=== PATIENT | male | born 1960 | race Caucasian/White ===

== ENCOUNTER 2023-10-02 12:28 | Outpatient (AMB) | payer OTHER, SELFPAY ==
[2023-10-02 12:32] VITALS: BP 126/70; PULSE 67; RESP 15; TEMP 36.6; O2SAT 96; BMI 36.7
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
== END 2023-10-02 13:45 | disposition home or self-care (01) ==
PROVIDERS: PCP Nurse Practitioner Family; Visit Provider Nurse Practitioner Family
DX: E11.8 Type 2 diabetes mellitus with unspecified complications (principal); Z23 Encounter for immunization
CPT/HCPCS: 83036; 90471; 90715; 99205; G9226

== ENCOUNTER 2023-10-02 13:34 | Outpatient (REF) | payer OTHER, SELFPAY ==
[2023-10-02 15:36] LABS: Alanine Aminotransferase 16 U/L (0-40); Albumin Level 3.9 g/dL (3.5-5.0); Alkaline Phosphatase 71 U/L (39-117); Anion Gap 11 (12-20); Aspartate Amino Transferase 22 U/L (5-37); Bilirubin Total 0.6 mg/dL (0.0-1.0); Blood Urea Nitrogen 17 mg/dL (9-16); Calcium 9.3 mg/dL (8.4-10.2); Carbon Dioxide 24 mmol/L (22-29); Chloride 106 mmol/L (96-108); Estimated Glomerular Filt Rate > 60; Glucose Random 101 mg/dL (60-115); Potassium 4.1 mmol/L (3.3-5.1); Sodium 137 mmol/L (135-145); Total Protein 7.2 g/dL (6.5-8.0)
[2023-10-02 15:41] LABS: Creatinine Urine 177.22 mg/dL
[2023-10-02 15:54] LABS: TSH reflex Free T4 2.81 uIU/mL (0.32-4.0)
[2023-10-02 16:02] LABS: Vitamin B12 191 pg/mL (200-900)
[2023-10-04 11:48] LABS: LDL Cholesterol Direct 104 mg/dL (<100)
[2023-10-07 20:38] LABS: VITAMIN D (1,25 OH) D3 47 pg/mL; Vit D (1,25-Dihydroxy) Total 47 pg/mL (18-72); Vitamin D (1,25 OH) D2 <8 pg/mL
[2023-10-08 21:33] LABS: PSA, Ultra Sensitive 0.32 ng/mL
== END 2023-10-02 13:35 | disposition home or self-care (01) ==
LOC: HO.WFDLDS 13:34
PROVIDERS: Visit Provider Nurse Practitioner Family
DX: E11.59 Type 2 diabetes mellitus with other circulatory complications (principal); I15.2 Hypertension secondary to endocrine disorders; E11.21 Type 2 diabetes mellitus with diabetic nephropathy; K74.60 Unspecified cirrhosis of liver; E11.8 Type 2 diabetes mellitus with unspecified complications; Z12.5 Encounter for screening for malignant neoplasm of prostate
CPT/HCPCS: 36415; 80053; 82043; 82570; 82607; 82652; 82746; 83721; 84153; 84443

== ENCOUNTER 2023-10-14 14:08 | Outpatient (AMB) | payer OTHER, SELFPAY ==
[2023-10-14 14:13] VITALS: BP 120/62; PULSE 71; O2SAT 96; BMI 36.5
--- NOTE | 2023-10-14 14:13 | HO.NEPHOV_ITS ---
Vital Signs 10/14/23 14:13 Height 5 ft 11 in Weight 262 lb BMI 36.5 BP 120/62 Blood Pressure Location Lt brachial Position Sitting Pulse 71 Pulse Source Pulse Oximeter Pulse Oximetry (%) 96 Oxygen Delivery Method Room Air Intake Visit Reasons: Cyst of kidney/ Conf Head Screen Worker Required: No Accompanied by: Self / Same As Patient Allergies No Known Allergies Allergy (Verified 10/14/23 14:14) Medication List - Last Reconciled 10/14/23 by Azael Shah MD aspirin 81 mg PO QAM docusate sodium 100 mg PO BID fluoxetine 40 mg PO QAM lamotrigine ER 300 mg PO DAILY lisinopril 40 mg PO DAILY lorazepam (Ativan) 0.5 mg PO BEDTIME PRN mecobalamin (vitamin B12) (B12 Active) 1,000 mcg PO DAILY metformin ER 1,500 mg PO DAILY simvastatin 40 mg PO BEDTIME HPI Comments Details: . 63-year-old man with a history of diabetes mellitus for more than 15 years along with hypertension obesity was found to have simple renal cyst. He has been referred for evaluation of renal cyst. In 2021 he underwent repair of umbilical hernia which was incarcerated. During evaluation he was found to have bilateral simple cyst. He used to see Dr. Kenna Mcconnell send up until 2022. After his prison he has switched providers and currently being seen at by the [facility]. He also has microalbuminuria. Recent urine microalbumin creatinine ratio was 31. He is on lisinopril 40 mg. 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 Cognitive needs: No Hearing needs: No Vision needs: No Review of Systems Const Denies fever(s) and Denies weight loss Card Denies chest pain Resp Denies cough and Denies hemoptysis GI Denies abdominal pain, Denies diarrhea and Denies nausea Musc Denies back pain Neuro Denies focal weakness Physical Exam Vital Signs: Last Vital Signs Pulse 71 10/14/23 14:13 BP 120/62 10/14/23 14:13 Pulse Ox 96 10/14/23 14:13 Oxygen Delivery Method Room Air 10/14/23 14:13 BMI result Body Mass Index 36.5 Const General: comfortable; No acute distress Orientation/consciousness: patient oriented x3 Eyes General: appearance normal, both eyes and all related structures Visual Jay: normal visual jay by confrontation Neck Neck: Yes supple and Yes no JVD Resp Effort & Inspection: normal respiratory effort and respiratory effort not decreased Auscultation: rhonchi Cardio Palpation: no palpable S3 and no palpable S4 Heart sounds: no rubs GI Inspection: Yes normal to inspection Palpation (GI): Soft to palpation Percussion: Yes normal to percussion Auscultation: normal bowel sounds General: Yes no CVA tenderness Back/Spine/Pelvis Back: no CVA tenderness Skin General skin exam: no petechiae and no purpura Neuro General: patient oriented x3 and no focal motor deficits Extrem General: No clubbing and No edema Results Reviewed Nephrology Results: Sodium 137 mmol/L (135-145) 10/02/23 Potassium 4.1 mmol/L (3.3-5.1) 10/02/23 Chloride 106 mmol/L (96-108) 10/02/23 Carbon Dioxide 24 mmol/L (22-29) 10/02/23 BUN 17 mg/dL (9-16) H 10/02/23 Creatinine 0.79 mg/dL (0.5-1.4) 10/02/23 Calcium 9.3 mg/dL (8.4-10.2) 10/02/23 Urine Creatinine 177.22 mg/dL 10/02/23 Assessment & Plan Assessment & Plan (1) Renal cyst: Code(s): N28.1 - Cyst of kidney, acquired Category: Medical (2) CKD (chronic kidney disease) stage 1, GFR 90 ml/min or greater: Code(s): N18.1 - Chronic kidney disease, stage 1 Category: Medical Plan ; 63-year-old man with hypertension diabetes medicine obesity with microalbuminuria and simple renal cyst. He has stage I CKD based on the renal cyst and microalbuminuria. Renal function is stable. Renal cyst. Based on the CT scan the appears a simple cyst. He has a follow-up ultrasound scheduled in the next 2 weeks. For completion I will obtain urine cytology and urinalysis. At present blood pressure is well controlled. Continue with ADILSON inhibitor for both control blood pressure and to control microalbuminuria. He should stay on low-sodium diet and he will benefit from weight loss. We will also benefit from SGLT2 inhibitors. Today are not made any changes in medications I will be happy to follow along with the team. Thank you Orders: Orders Urine Cytology Today N28.1 - Cyst of kidney, acquired, R31.9 - Hematuria, unspecified UA and rflx microscopic Today N28.1 - Cyst of kidney, acquired Medications: Discontinued simvastatin Discontinued Reason: Doctor's Order 20 mg PO DAILY 90 tabs 0RF Coding Level of Care Code New Pt Level 4 (74509) Diagnoses Renal cyst N28.1 CKD (chronic kidney disease) stage 1, GFR 90 ml/min or greater N18.1
== END 2023-10-14 14:39 | disposition home or self-care (01) ==
PROVIDERS: PCP Nurse Practitioner Family; Visit Provider Internal Medicine Hypertension Specialist
DX: N28.1 Cyst of kidney, acquired (principal); N18.1 Chronic kidney disease, stage 1
CPT/HCPCS: 99204

== ENCOUNTER 2023-10-14 14:08 | Outpatient (REF) | payer OTHER, SELFPAY ==
[2023-10-14 15:40] LABS: Urine Cytology See Pathology rpt
[2023-10-14 15:44] LABS: Estimated Average Glucose 117 mg/dL; Hemoglobin A1c % 5.7 % (<6.0)
[2023-10-14 15:49] LABS: Appearance Urine Clear; Color Urine Yellow; Glucose Urine UA Negative (Negative); Leukocyte Esterase Urine Negative (Negative); Nitrite Urine Negative (Negative); PH 5.5 (5.0-9.0); Urine Blood Negative (Negative); Urine Ketones Negative (Negative); Urine Protein Negative (Neg-Trace)
[2023-10-14 16:14] LABS: Alanine Aminotransferase 16 U/L (0-40); Albumin Level 3.9 g/dL (3.5-5.0); Alkaline Phosphatase 70 U/L (39-117); Anion Gap 11 (12-20); Aspartate Amino Transferase 34 U/L (5-37); Bilirubin Total 0.8 mg/dL (0.0-1.0); Blood Urea Nitrogen 16 mg/dL (9-16); Calcium 9.6 mg/dL (8.4-10.2); Carbon Dioxide 25 mmol/L (22-29); Chloride 108 mmol/L (96-108); Cholesterol 129 mg/dL (<200); Estimated Glomerular Filt Rate > 60; Glucose Fasting 114 mg/dL (60-99); HDL Cholesterol 36 mg/dL (>40); LDL Cholesterol Calculated 23 mg/dL (<100); Potassium 4.2 mmol/L (3.3-5.1); Sodium 140 mmol/L (135-145); Total Protein 7.2 g/dL (6.5-8.0); Triglycerides 354 mg/dL (<150)
[2023-10-14 16:49] LABS: Folate 8.4 ng/mL (> or = 4.0); Vitamin B12 162 pg/mL (200-900)
== END 2023-10-14 14:09 | disposition home or self-care (01) ==
LOC: HO.LAB 14:08
PROVIDERS: PCP Nurse Practitioner Family; Visit Provider Internal Medicine Hypertension Specialist
DX: N28.1 Cyst of kidney, acquired (principal); E53.8 Deficiency of other specified B group vitamins; E11.59 Type 2 diabetes mellitus with other circulatory complications; I15.2 Hypertension secondary to endocrine disorders; E11.8 Type 2 diabetes mellitus with unspecified complications; R31.9 Hematuria, unspecified
CPT/HCPCS: 36415; 80053; 80061; 81003; 82607; 82746; 83036; 88112

== ENCOUNTER 2023-10-29 09:29 | Outpatient (REF) | payer OTHER, SELFPAY ==
--- NOTE | ~2023-10-29 | US_ITS ---
EXAMINATION: NONINVASIVE ANKLE BRACHIAL INDICES OF BOTH LOWER EXTREMITIES CLINICAL INFORMATION: Diabetes, hyperlipidemia, hypertension. COMPARISON: None. TECHNIQUE: Ankle-brachial indices were calculated bilaterally and PVR tracings were performed at the level of the ankles. This study was performed at rest only. FINDINGS: a) AT REST: 1. The ankle-brachial indices are: Right 1.25 and left 1.18. >0.97-1.25 = normal - no significant arterial disease. 0.75-0.96 = mild peripheral arterial disease. 0.5-0.74 = moderate peripheral arterial disease. <0.50 = severe peripheral arterial disease. 2. PVR waveforms at ankle: Normal. US/US CHETAN complete IMPRESSION: No evidence of hemodynamically significant lower extremity peripheral arterial disease at rest.
--- NOTE | 2023-10-29 14:59 | CA_ITS ---
Transthoracic Echocardiogram Patient (Last, First, Middle): Guevara Banuelos, Gender: Male Date of : 1960 Age: 63 Procedure Date: 10/29/2023 Procedure Type: Transthoracic Echocardiogram Location: OP Height: 180.34 cm Weight: 117.94 kg BSA: 2.36 m2 Heart Rate: 58 bpm BP: 122 / 64 mmHg Embedded Systems Software Engineer: SB Referring MD: Mandy Dale [facility] Symptoms: R60.0 - Localized edema Study Quality: Adequate ECG Rhythm: Bradycardia Conclusions: - The left ventricular systolic function is normal. The calculated ejection fraction is 66% by biplane method. - No obvious valvular pathology seen on this study. Findings Left Ventricle Normal left ventricular cavity size. There is normal left ventricular wall thickness. The left ventricular systolic function is normal. The calculated ejection fraction is 66% by biplane method. There is no evidence of regional wall motion abnormalities. Diastolic function is normal for age. Right Ventricle Normal right ventricular cavity size and systolic function. Atria Both atria are normal in size. Aortic Valve There is a normal trileaflet aortic valve. There is no aortic valve stenosis. There is no aortic valve regurgitation. Mitral Valve The mitral valve appears normal. There is no mitral valve regurgitation. There is no mitral valve stenosis. Pulmonic Valve The pulmonic valve is likely normal. Tricuspid Valve There is trace tricuspid valve regurgitation. There is no evidence of pulmonary hypertension. Great Vessels The asc aorta is normal in size. Venous The inferior vena cava is normal in size and collapses greater than 50% with inspiration. Pericardium/Pleural There is no evidence of pericardial effusion. Prior Study Comparison No prior study available for comparison. Recommendations, Care & Conclusions No obvious valvular pathology seen on this study. Measurements 2D Linear Measurements IVSd: 0.85 0.6-0.9/0.6-1.0 cm LVIDd: 6.41 3.9-5.3/4.2-5.9 cm LVIDd Index: 2.72 2.4-3.2/2.2-3.1 cm/m2 LVIDs: 4.57 2.0-3.6 cm LVPWd: 0.74 0.7-1.1 cm LA Diam: 4.20 2.7-3.8/3.0-4.0 cm LAIDs Index: 1.78 1.5-2.3 cm/m2 LV Mass: 258.57 67-162/88-224 g LV Mass Index: 109.56 43-95/49-115 g/m2 LVOT Diam: 2.30 3.0+(-)1.3 cm 2D Systolic Function EF 4C: 58.90 >55% EF 2C: 70.00 >55% EF BiP: 65.50 >55% Mitral Valve MV Pk E: 0.86 MV PK A: 0.64 MV Decel Time: 173.00 E/A: 1.30 E'Lateral: 10.40 E'Medial: 9.46 E/E' Med: 9.10 E/E' Lat: 8.20 PHT: 51.00 MVA PHT: 4.31 Decel Floyd: 4.94 Aortic Valve AoV Pk Jesus: 1.30 AoV Pk Grad: 7.00 ROSEMARY: 3.67 LVOT LVOT Pk Jesus: 1.09 LVOT Mn Jesus: 0.81 LVOT VTI: 0.27 LVOT Pk Grad: 5.00 LVOT Mn Grad: 3.00 LVOT Diam: 2.30 LVOT Area: 4.15 Diastolic Function MV Pk E: 0.86 MV Pk A: 0.64 E/A: 1.30 E'Medial: 9.46 E/E' Med: 9.10 E' Laterial: 10.40 E/E' Lat: 8.20 Right Ventricle TAPSE (mm): 25.90 TVS' Jesus: 16.50 Tricuspid Valve TR Pk Jesus: 2.39 TR Pk Grad: 23.00 RA Press: 3.00 RVSP: 26.00 Great Vessels Aorta Sinus of Valsalva: 3.40 2.0-3.5 cm Ao Asc: 3.30 2.1-3.4 cm Pulmonary Valve PV Pk Jesus: 1.19 Peak PV Grad: 6.00 Updated in Other Vendor System with Status of Final Mac Stovall MD electronically signed on 10/31/2023 11:09:23 AM with status of Final
== END 2023-10-29 09:30 | disposition home or self-care (01) ==
LOC: HO.US 09:29
PROVIDERS: PCP Nurse Practitioner Family; Visit Provider Nurse Practitioner Family
DX: R60.0 Localized edema (principal); I73.9 Peripheral vascular disease, unspecified
CPT/HCPCS: 93306; 93923

== ENCOUNTER → 2023-10-29 14:59 | Outpatient (BNV) | payer OTHER, SELFPAY | PROVIDERS: PCP Nurse Practitioner Family; Visit Provider Internal Medicine | DX: R60.0 Localized edema (principal) | CPT/HCPCS: 93306 ==

== ENCOUNTER 2023-11-01 09:52 | Outpatient (REF) | payer OTHER, SELFPAY ==
--- NOTE | ~2023-11-01 | US_ITS ---
EXAMINATION: US COMPLETE ABDOMEN WITH LIVER ELASTOGRAPHY CLINICAL INFORMATION: Cirrhotic liver. COMPARISON: None available. TECHNIQUE: Real-time imaging of the abdominal viscera. Noninvasive ultrasound liver fibrosis assessment is performed using Giselle ElastPQ point quantification shear wave elastography (2D-SWE) with a C5-2 MHz transducer. Multiple elastography samples are obtained. FINDINGS: PANCREAS: The visualized pancreatic head and body are normal in appearance. The remainder of the pancreas is obscured from visualization by the overlying bowel gas. ABDOMINAL AORTA: The proximal, middle, and distal aortic segments are normal in caliber. INFERIOR VENA CAVA: Visualized portions are normal. LIVER: The liver is enlarged with increased echogenicity and a lobular contour consistent with hepatic steatosis/cirrhosis. No focal lesion or intrahepatic biliary duct dilatation. The right lobe measures 20.0 cm in length. The left lobe measures 11.8 cm in length. Portal flow is towards the liver (hepatopetal). Shear wave liver elastography median stiffness is 1.29 m/s (reference: normal median stiffness is 1.3 m/s or less). IQR/median stiffness to assess sampling precision is 0.09 (reference: good quality data set is IQR/median stiffness of 0.15 or less). GALLBLADDER: The gallbladder is physiologically distended without evidence of stones, sludge, polyps, wall thickening or pericholecystic fluid. COMMON BILE DUCT: Normal in caliber measuring 0.6 cm in diameter. RIGHT KIDNEY: No hydronephrosis. No renal calculi. A benign 1.6 cm septated Bosniak class II renal cyst is noted which requires no additional imaging or follow up. No solid renal masses are seen. The kidney measures 12.3 cm in maximum dimension. LEFT KIDNEY: No hydronephrosis. No renal calculi. A benign 1.5 cm Bosniak class I renal cyst is noted which requires no additional imaging or follow up. No solid renal masses are seen. The kidney measures 12.1 cm in maximum dimension. SPLEEN: Normal. The spleen is enlarged measuring 15 cm in maximum dimension. FREE FLUID: None. US/US abdomen comp w elastography IMPRESSION: 1. Enlarged echogenic liver with a nodular border consistent with cirrhosis/fatty infiltration. 2. Liver elastography: Measurements are consistent with a high probability of normal liver stiffness. REFERENCE: Society of Radiologists in Ultrasound Liver Stiffness Thresholds (2020): LIVER STIFFNESS THRESHOLDS: *Liver Stiffness equal or less than 1.3 m/s: High probability of being normal. *Liver Stiffness less than 1.7 m/s: In the absence of other known clinical signs, rules out compensated advanced chronic liver disease. *Liver Stiffness 1.7-2.1 m/s: Suggestive of compensated advanced chronic liver disease but need further test for confirmation. *Liver Stiffness over 2.1 m/s: Rules in compensated advanced chronic liver disease. *Liver Stiffness over 2.4 m/s: Suggestive of clinically significant portal hypertension. QUALITY OF DATA SET: *IQR/Median value equal or less than 0.15 implies a quality data set. *IQR/Median value over 0.15 implies a poor quality data set. SIGNIFICANT CHANGE FROM PRIOR EXAM: Significant change if liver stiffness measurement is 10% or greater from prior exam. OTHER CONSIDERATIONS: The stage of liver fibrosis may be overestimated in the setting of acute hepatitis, liver inflammation, elevated liver function tests, hepatic vascular congestion, obstructive cholestasis, non-fasting state, and infiltrative diseases such as amyloidosis and lymphoma. In some patients with NAFLD, the liver stiffness thresholds for compensated advanced chronic liver disease may be lower. In causes other than viral hepatitis and NAFLD, liver stiffness thresholds are not well established.
== END 2023-11-01 09:53 | disposition home or self-care (01) ==
LOC: HO.US 09:52
PROVIDERS: PCP Nurse Practitioner Family; Visit Provider Nurse Practitioner Family
DX: K74.60 Unspecified cirrhosis of liver (principal); N28.1 Cyst of kidney, acquired
CPT/HCPCS: 76700; 76981

== ENCOUNTER 2023-11-25 10:25 | Outpatient (AMB) | payer OTHER, SELFPAY ==
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
[2023-11-25 10:34] VITALS: BP 108/60; PULSE 57; RESP 16; O2SAT 95; BMI 36.7
== END 2023-11-25 11:11 | disposition home or self-care (01) ==
PROVIDERS: PCP Nurse Practitioner Family; Visit Provider Nurse Practitioner Family
DX: E11.8 Type 2 diabetes mellitus with unspecified complications (principal); E53.8 Deficiency of other specified B group vitamins; E11.69 Type 2 diabetes mellitus with other specified complication; E78.5 Hyperlipidemia, unspecified; N18.1 Chronic kidney disease, stage 1; R60.0 Localized edema; M54.9 Dorsalgia, unspecified; G89.29 Other chronic pain
CPT/HCPCS: 99215

== ENCOUNTER 2023-12-23 11:13 | Outpatient (AMB) | payer OTHER, SELFPAY ==
[2023-12-23 11:17] VITALS: BP 124/60; PULSE 68; O2SAT 95; BMI 37.0
--- NOTE | 2023-12-23 11:17 | HO.NEPHOV_ITS ---
Vital Signs 12/23/23 11:17 Height 5 ft 11 in Weight 265 lb BMI 37.0 BP 124/60 Blood Pressure Location Lt brachial Position Sitting Pulse 68 Pulse Source Pulse Oximeter Pulse Oximetry (%) 95 Oxygen Delivery Method Room Air Intake Visit Reasons: Cyst of kidney/ Per pt request/ Conf Publishing Specialist Required: No Accompanied by: Self / Same As Patient Allergies No Known Allergies Allergy (Verified 12/23/23 11:19) Medication List - Last Reconciled 12/23/23 by Azael Shah MD carisoprodol (Soma) 350 mg PO BEDTIME PRN docusate sodium 100 mg PO BID PRN fluoxetine 40 mg PO QAM lamotrigine ER 300 mg PO DAILY lisinopril 40 mg PO DAILY lorazepam 1 mg PO DAILY PRN mecobalamin (vitamin B12) (B12 Active) 1,000 mcg PO DAILY metformin ER 1,500 mg PO DAILY simvastatin 40 mg PO BEDTIME HPI Comments Details: . 63-year-old man with a history of diabetes mellitus for more than 15 years along with hypertension obesity was found to have simple renal cyst. He has been referred for evaluation of renal cyst. In 2021 he underwent repair of umbilical hernia which was incarcerated. During evaluation he was found to have bilateral simple cyst. He used to see Dr. Kenna Mcconnell send up until 2022. After his assisted he has switched providers and currently being seen at by the [place] lead dental assistant. He also has microalbuminuria. Recent urine microalbumin creatinine ratio was 31. He is on lisinopril 40 mg. 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 Cognitive needs: No Hearing needs: No Vision needs: No Physical Exam Vital Signs: Last Vital Signs Pulse 68 12/23/23 11:17 BP 124/60 12/23/23 11:17 Pulse Ox 95 12/23/23 11:17 Oxygen Delivery Method Room Air 12/23/23 11:17 BMI result Body Mass Index 37.0 Const General: comfortable; No acute distress Orientation/consciousness: patient oriented x3 Eyes General: appearance normal, both eyes and all related structures Visual Jay: normal visual jay by confrontation Neck Neck: Yes supple and Yes no JVD Resp Effort & Inspection: normal respiratory effort and respiratory effort not decreased Auscultation: rhonchi Cardio Palpation: no palpable S3 and no palpable S4 Heart sounds: no rubs GI Inspection: Yes normal to inspection Palpation (GI): Soft to palpation Percussion: Yes normal to percussion Auscultation: normal bowel sounds General: Yes no CVA tenderness Back/Spine/Pelvis Back: no CVA tenderness Skin General skin exam: no petechiae and no purpura Neuro General: patient oriented x3 and no focal motor deficits Extrem General: No clubbing and No edema Results Reviewed Results Reviewed: Ultrasonogram October RIGHT KIDNEY: No hydronephrosis. No renal calculi. A benign 1.6 cm septated Bosniak class II renal cyst is noted which requires no additional imaging or follow up. No solid renal masses are seen. The kidney measures 12.3 cm in maximum dimension. LEFT KIDNEY: No hydronephrosis. No renal calculi. A benign 1.5 cm Bosniak class I renal cyst is noted which requires no additional imaging or follow up. No solid renal masses are seen. The kidney measures 12.1 cm in maximum dimension. SPLEEN: Normal. The spleen is enlarged measuring 15 cm in maximum dimension. Nephrology Results: Sodium 140 mmol/L (135-145) 10/14/23 Potassium 4.2 mmol/L (3.3-5.1) 10/14/23 Chloride 108 mmol/L (96-108) 10/14/23 Carbon Dioxide 25 mmol/L (22-29) 10/14/23 BUN 16 mg/dL (9-16) 10/14/23 Creatinine 0.86 mg/dL (0.5-1.4) 10/14/23 Calcium 9.6 mg/dL (8.4-10.2) 10/14/23 Urine Protein Negative mg/dL (Neg-Trace) 10/14/23 Urine Creatinine 177.22 mg/dL 10/02/23 Assessment & Plan Assessment & Plan (1) Renal cyst: Code(s): N28.1 - Cyst of kidney, acquired Category: Medical (2) CKD (chronic kidney disease) stage 1, GFR 90 ml/min or greater: Code(s): N18.1 - Chronic kidney disease, stage 1 Category: Medical Plan ; 63-year-old man with hypertension diabetes medicine obesity with microalbuminuria and simple renal cyst. He has stage I CKD based on the renal cyst and microalbuminuria. Renal function is stable. Renal cyst. Based on the CT scan the appears a simple cyst. Follow-up ultrasonogram showed a simple cyst. No further workup was recommended. At present blood pressure is well controlled. Continue with ADILSON inhibitor for both control blood pressure and to control microalbuminuria. He should stay on low-sodium diet and he will benefit from weight loss. We will also benefit from SGLT2 inhibitors. No changes were made today. Orders: Orders Total Protein Urine Random 1 Year N18.1 - Chronic kidney disease, stage 1 Basic Metabolic Panel 1 Year N18.1 - Chronic kidney disease, stage 1 Creatinine Urine 1 Year N18.1 - Chronic kidney disease, stage 1 Coding Level of Care Code Est Pt Level 3 (15509) Diagnoses Renal cyst N28.1 CKD (chronic kidney disease) stage 1, GFR 90 ml/min or greater N18.1
== END 2023-12-23 11:36 | disposition home or self-care (01) ==
PROVIDERS: PCP Nurse Practitioner Family; Visit Provider Internal Medicine Hypertension Specialist
DX: N28.1 Cyst of kidney, acquired (principal); N18.1 Chronic kidney disease, stage 1
CPT/HCPCS: 99213

== ENCOUNTER → 2023-12-23 11:13 | Outpatient (BNVA) | payer OTHER, SELFPAY | PROVIDERS: PCP Nurse Practitioner Family; Visit Provider Internal Medicine Hypertension Specialist ==

== ENCOUNTER 2024-01-20 10:09 | Outpatient (REF) | payer OTHER, SELFPAY ==
[2024-01-20 11:46] LABS: Estimated Average Glucose 117 mg/dL; Hemoglobin A1c % 5.7 % (<6.0)
[2024-01-20 12:07] LABS: Alanine Aminotransferase 15 U/L (0-40); Albumin Level 3.9 g/dL (3.5-5.0); Alkaline Phosphatase 62 U/L (39-117); Anion Gap 12 (12-20); Aspartate Amino Transferase 19 U/L (5-37); Bilirubin Total 0.9 mg/dL (0.0-1.0); Blood Urea Nitrogen 19 mg/dL (9-16); Calcium 9.2 mg/dL (8.4-10.2); Carbon Dioxide 27 mmol/L (22-29); Chloride 108 mmol/L (96-108); Cholesterol 120 mg/dL (<200); Estimated Glomerular Filt Rate > 60; Glucose Fasting 99 mg/dL (60-99); Glucose Random 99 mg/dL (60-115); HDL Cholesterol 44 mg/dL (>40); LDL Cholesterol Calculated 49 mg/dL (<100); Potassium 4.5 mmol/L (3.3-5.1); Sodium 142 mmol/L (135-145); Triglycerides 137 mg/dL (<150)
[2024-01-20 12:36] LABS: Folate 7.1 ng/mL (> or = 4.0); Vitamin B12 511 pg/mL (200-900)
== END 2024-01-20 10:10 | disposition home or self-care (01) ==
LOC: HO.WFDLDS 10:09
PROVIDERS: Referring Provider Internal Medicine Hypertension Specialist; Visit Provider Nurse Practitioner Family
DX: E11.8 Type 2 diabetes mellitus with unspecified complications (principal); G47.33 Obstructive sleep apnea (adult) (pediatric); E11.69 Type 2 diabetes mellitus with other specified complication; E78.5 Hyperlipidemia, unspecified; E11.22 Type 2 diabetes mellitus with diabetic chronic kidney disease; N18.1 Chronic kidney disease, stage 1; I73.9 Peripheral vascular disease, unspecified; E11.42 Type 2 diabetes mellitus with diabetic polyneuropathy; E66.01 Morbid (severe) obesity due to excess calories; Z68.39 Body mass index [BMI] 39.0-39.9, adult; G89.29 Other chronic pain; M54.9 Dorsalgia, unspecified; E11.21 Type 2 diabetes mellitus with diabetic nephropathy; E11.59 Type 2 diabetes mellitus with other circulatory complications; I15.2 Hypertension secondary to endocrine disorders; E53.8 Deficiency of other specified B group vitamins
CPT/HCPCS: 36415; 80048; 80053; 80061; 82607; 82746; 83036; 96127

== ENCOUNTER 2024-01-20 10:15 | Outpatient (AMB) | payer OTHER, SELFPAY ==
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
[2024-01-20 10:22] VITALS: BP 118/70; PULSE 54; RESP 15; O2SAT 95; BMI 37.5
== END 2024-01-20 11:00 | disposition home or self-care (01) ==
PROVIDERS: PCP Nurse Practitioner Family; Visit Provider Nurse Practitioner Family
DX: E11.8 Type 2 diabetes mellitus with unspecified complications (principal); E11.69 Type 2 diabetes mellitus with other specified complication; I73.9 Peripheral vascular disease, unspecified; E11.42 Type 2 diabetes mellitus with diabetic polyneuropathy; E66.01 Morbid (severe) obesity due to excess calories; E11.59 Type 2 diabetes mellitus with other circulatory complications; E11.21 Type 2 diabetes mellitus with diabetic nephropathy; G47.33 Obstructive sleep apnea (adult) (pediatric); E78.5 Hyperlipidemia, unspecified; N18.1 Chronic kidney disease, stage 1; Z68.36 Body mass index [BMI] 36.0-36.9, adult; M54.9 Dorsalgia, unspecified

== ENCOUNTER 2024-04-10 11:59 | Outpatient (AMB) | payer OTHER, SELFPAY ==
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
[2024-04-10 12:05] VITALS: BP 124/72; PULSE 61; RESP 13; O2SAT 95; BMI 37.7
== END 2024-04-10 12:46 | disposition home or self-care (01) ==
PROVIDERS: PCP Nurse Practitioner Family; Visit Provider Nurse Practitioner Family
DX: Z00.00 Encounter for general adult medical examination without abnormal findings (principal); E11.8 Type 2 diabetes mellitus with unspecified complications; E11.59 Type 2 diabetes mellitus with other circulatory complications; K74.60 Unspecified cirrhosis of liver; E11.69 Type 2 diabetes mellitus with other specified complication; M25.571 Pain in right ankle and joints of right foot; N18.1 Chronic kidney disease, stage 1; I15.2 Hypertension secondary to endocrine disorders; E78.5 Hyperlipidemia, unspecified

== ENCOUNTER → 2024-04-10 11:59 | Outpatient (BNVA) | payer OTHER, SELFPAY | PROVIDERS: PCP Nurse Practitioner Family; Visit Provider Nurse Practitioner Family | DX: Z00.00 Encounter for general adult medical examination without abnormal findings (principal); M25.571 Pain in right ankle and joints of right foot; E11.22 Type 2 diabetes mellitus with diabetic chronic kidney disease; N18.1 Chronic kidney disease, stage 1; E11.59 Type 2 diabetes mellitus with other circulatory complications; I15.2 Hypertension secondary to endocrine disorders; K74.60 Unspecified cirrhosis of liver; E11.69 Type 2 diabetes mellitus with other specified complication; E78.5 Hyperlipidemia, unspecified | CPT/HCPCS: 83036; 96127 ==

== ENCOUNTER → 2024-06-01 15:29 | Outpatient (AMB) | payer OTHER, SELFPAY ==
--- NOTE | 2024-06-01 16:24 | A.OFFPC_ITS ---
Intake Visit Reasons: Appt lower back pain Allergies No Known Allergies Allergy (Verified 06/01/24 16:24) Medication List - Last Reconciled 06/01/24 by SRINIVASAN Swann- carisoprodol (Soma) 350 mg PO BEDTIME PRN docusate sodium 100 mg PO BID PRN fluoxetine 40 mg PO QAM lamotrigine 200 mg PO DAILY lisinopril 40 mg PO DAILY lorazepam 1 mg PO DAILY PRN mecobalamin (vitamin B12) (B12 Active) 1,000 mcg PO DAILY metformin ER 1,500 mg (3 x 500 mg) PO DAILY 90 days simvastatin 40 mg PO BEDTIME Tobacco use date assessed: 06/01/24 Dental Screening Dental Screen Date: 06/01/24 Did you have a dental visit in the last 12 months?: Yes Did you have a dental problem in the last 6 months where you did not have access to dental care?: No Was dental information given to patient?: Patient has dentist HPI HPI Comments History of Present Illness Details Telehealth visit today: The patient is a 64-year-old male with chronic low back pain. He reports a long history of back issues primarily affecting his lower back, attributed to osteoarthritis and work-related strain over the past 30 years. Recently, his condition has worsened, leading to a substantial impact on his daily activities, particularly towards the late afternoon and evening. He has experienced relief when using heating pads at home. Last week, working remotely provided additional respite. The patient currently uses Tylenol Extra Strength and lidocaine patches, which offers some temporary relief. His pain typically escalates later in the day and is exacerbated by cold weather. He is considering physical therapy to manage symptoms more effectively. The patient also has an appointment scheduled with his psychiatric provider, indicating the management of anxiety issues. Jun 22 Psych prescriber Counseling Q2 weeks [facility] Social History - Employment: Works remotely a few days a week; seeking workplace accommodations for back pain. - Mental Health Care: Scheduled for an a ppointment with a psychologist through [facility], and sees a therapist bi-weekly. Jun 22 Psych prescriber Counseling Q2 weeks [facility] Discussion Notes During the visit, I focused on providing patient-centered discussions to address chronic low back pain management and reasonable workplace accommodations. We explored various options for managing back pain, including continued use of heating pads and lidocaine patches, and initiating physical therapy once weather permits for better symptom control. I also provided guidance on medication use, ensuring that Tylenol intake does not exceed the recommended daily dosage. Additionally, we discussed the provision of a letter requesting human resources to allow the patient to work remotely during acute exacerbations of back pain. I offered to upload this letter to the patient portal and provide a signed hard copy. Discussions also included affirmations that not exceeding the medication dosage of Tylenol by monitoring intake and ensuring it remains within safe limits. Finally, arrangements for upcoming psychiatric consultation were confirmed, with recognition of the patient's current therapeutic engagements to support anxiety. Patient Instructions - Continue use of heating pads and lidoc thien patches for back pain relief. - Ensure Tylenol use does not exceed 400 0 mg per day to prevent overuse. - Work remotely when back pain exacerbat es, using the portal letter to support this request with HR. - Attend the scheduled psychiatric and t herapy sessions as planned. - Consider initiating physical therapy s essions once appropriate to manage chronic back pain. Plan - Chronic Low Back Pain: Emphasize non-p harmacological pain management strategies, such as heat therapy and physical therapy, to alleviate symptoms. Lidocaine patches may be beneficial. Confirm integration of reasonable workplace accommodations, including remote work capability during acute exacerbations to prevent strain exacerbation. Letter mailed and sent to the patient portal - Reasonable Workplace Accommodation: Dr colindres and provide documentation to facilitate workplace accommodation, ensuring the patient can manage his condition while maximizing occupational functionality. - Osteoarthritis: Monitor ongoing sympto matology, and ensure ambient environment adjustments to minimize cold-induced discomfort. Assess suitability and timing for physical therapy. - Anxiety: Confirm ongoing mental health management with therapist and psychiatrist; facilitate compliance with scheduled therapy and psychiatric consultations to manage anxiety symptoms effectively. Patient was informed and verbally consented to the use of an ambient scribe for clinic note documentation during this visit. Total time spent caring for the patient today was 15 minutes. This includes time spent before the visit reviewing the chart, time spent during the visit, and time spent after the visit on documentation, reviewing laboratory results, diagnostic imaging, medications, performing a medically necessary evaluation, counseling on diagnoses, care coordination, ordering appropriate tests, ordering appropriate medications, review of tests performed by other providers, reporting test results with the patient, communication with other healthcare providers. 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 Andre Diaz, Lety Ray, Mat Stubbs and colleagues, with an educational daniel from [employer]. Physical exam (Primary Care) Tobacco/Smoking Status: Tobacco use Status Tobacco use date assessed 06/01/24 06/01/24 16:28 Patient Tobacco Use Status Former Tobacco user 06/01/24 16:24 e-Cigarette/Vaping Use Never Used 06/01/24 16:24 Thrive Assessment: Date of Thrive Assessment Date Thrive assessed 04/10/24 06/01/24 16:24 Telehealth Telehealth Telehealth Platform: [facility] Location of provider rendering services: practice address Location of patient: address on file Patient Identification confirmed using: Name, : Yes Telehealth method: voice only Patient verbally consented to treatment: Yes Patient verbally consented to billing insurance company: Yes Patient informed of any privacy concerns related to visit: Yes Minutes spent on Phone/Video with Pt.: 10 Coding Level of Care Code Tele Est Pt Level 2 (09131) Complex EM visit Add On G2211 Diagnoses Chronic back pain, unspecified back location, unspecified back pain laterality M54.9; G89.29 Back pain laterality: unspecified Back pain location: back pain in unspecified location Encounters for administrative purpose Z02.9 Assessment & Plan Assessment & Plan (1) Chronic back pain: Code(s): M54.9 - Dorsalgia, unspecified; G89.29 - Other chronic pain Category: Medical Qualifiers: Back pain laterality: unspecified Back pain location: back pain in unspecified location Qualified Code(s): M54.9 - Dorsalgia, unspecified; G89.29 - Other chronic pain Plan: . (2) Encounters for administrative purpose: Code(s): Z02.9 - Encounter for administrative examinations, unspecified Plan .
== END ==
LOC: HO.HMCFM 15:29
PROVIDERS: PCP Nurse Practitioner Family; Visit Provider Nurse Practitioner Family
DX: M54.9 Dorsalgia, unspecified (principal); G89.29 Other chronic pain

== ENCOUNTER 2024-08-24 10:49 | Outpatient (REF) | payer OTHER, SELFPAY ==
[2024-08-24 14:23] LABS: Estimated Average Glucose 126 mg/dL; Hemoglobin A1C 147.2173 umol/L
[2024-08-24 14:32] LABS: Alanine Aminotransferase 20 U/L (0-40); Albumin Level 3.8 g/dL (3.5-5.0); Alkaline Phosphatase 71 U/L (39-117); Anion Gap 10 (12-20); Aspartate Amino Transferase 32 U/L (5-37); Bilirubin Total 1.2 mg/dL (0.0-1.0); Blood Urea Nitrogen 17 mg/dL (9-16); Carbon Dioxide 25 mmol/L (22-29); Chloride 106 mmol/L (96-108); Cholesterol 118 mg/dL (<200); Estimated Glomerular Filt Rate > 60; Glucose Fasting 96 mg/dL (60-99); HDL Cholesterol 43 mg/dL (>40); LDL Cholesterol Calculated 46 mg/dL (<100); Potassium 4.1 mmol/L (3.3-5.1); Sodium 137 mmol/L (135-145); Total Protein 6.8 g/dL (6.5-8.0); Triglycerides 148 mg/dL (<150)
[2024-08-24 15:00] LABS: Folate 8.9 ng/mL (> or = 4.0); Vitamin B12 604 pg/mL (200-900)
== END 2024-08-24 10:50 | disposition home or self-care (01) ==
LOC: HO.WFDLDS 10:49
PROVIDERS: Visit Provider Nurse Practitioner Family
DX: E11.69 Type 2 diabetes mellitus with other specified complication (principal); E78.5 Hyperlipidemia, unspecified; N18.1 Chronic kidney disease, stage 1; K74.60 Unspecified cirrhosis of liver; E11.59 Type 2 diabetes mellitus with other circulatory complications; I15.2 Hypertension secondary to endocrine disorders; E11.8 Type 2 diabetes mellitus with unspecified complications
CPT/HCPCS: 36415; 80053; 80061; 82607; 82746; 83036

== ENCOUNTER 2024-08-28 12:29 | Outpatient (AMB) | payer OTHER, SELFPAY ==
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
[2024-08-28 12:41] VITALS: BP 122/70; PULSE 68; RESP 13; TEMP 36.2; O2SAT 96; BMI 37.4
== END 2024-08-28 13:29 | disposition home or self-care (01) ==
LOC: HO.HMCFM 12:36
PROVIDERS: Visit Provider Nurse Practitioner Family
DX: E11.8 Type 2 diabetes mellitus with unspecified complications (principal); E11.21 Type 2 diabetes mellitus with diabetic nephropathy; E11.42 Type 2 diabetes mellitus with diabetic polyneuropathy; E11.69 Type 2 diabetes mellitus with other specified complication; E11.59 Type 2 diabetes mellitus with other circulatory complications; K74.60 Unspecified cirrhosis of liver; E66.01 Morbid (severe) obesity due to excess calories; Z68.36 Body mass index [BMI] 36.0-36.9, adult; N18.1 Chronic kidney disease, stage 1; E53.8 Deficiency of other specified B group vitamins; F41.1 Generalized anxiety disorder; E78.5 Hyperlipidemia, unspecified

== ENCOUNTER → 2024-08-28 12:29 | Outpatient (BNVA) | payer OTHER, SELFPAY | PROVIDERS: Visit Provider Nurse Practitioner Family | DX: Z13.89 Encounter for screening for other disorder (principal) ==

== ENCOUNTER 2024-08-28 13:20 | Outpatient (REF) | payer OTHER, SELFPAY ==
[2024-08-28 15:17] LABS: Creatinine Urine 114.46 mg/dL
[2024-08-28 15:22] LABS: Creatinine Urine 113.37 mg/dL; Total Protein Urine Random 16 mg/dL (<12)
== END 2024-08-28 13:21 | disposition home or self-care (01) ==
LOC: HO.WFDLDS 13:20
PROVIDERS: Referring Provider Internal Medicine Hypertension Specialist; Visit Provider Nurse Practitioner Family
DX: E11.21 Type 2 diabetes mellitus with diabetic nephropathy (principal); E11.22 Type 2 diabetes mellitus with diabetic chronic kidney disease; N18.1 Chronic kidney disease, stage 1; E53.8 Deficiency of other specified B group vitamins; E11.42 Type 2 diabetes mellitus with diabetic polyneuropathy; F41.1 Generalized anxiety disorder; E11.69 Type 2 diabetes mellitus with other specified complication; E78.5 Hyperlipidemia, unspecified; E11.59 Type 2 diabetes mellitus with other circulatory complications; I15.2 Hypertension secondary to endocrine disorders; K74.60 Unspecified cirrhosis of liver; G47.33 Obstructive sleep apnea (adult) (pediatric); I73.9 Peripheral vascular disease, unspecified; E66.01 Morbid (severe) obesity due to excess calories; Z68.36 Body mass index [BMI] 36.0-36.9, adult
CPT/HCPCS: 82043; 82570; 84156; 96127

== ENCOUNTER → 2024-09-11 13:25 | Outpatient (AMB) | payer OTHER, SELFPAY ==
--- NOTE | 2024-09-11 13:26 | A.OFFVIS_ITS ---
Intake Visit Reasons: Cirrhosis of liver Intake Note: Guevara presents as a telehealth for cirrhosis. CC: States he has a CT scan done and this is to discuss his Cirrhosis. Crm Marketing Manager Required: No Allergies No Known Allergies Allergy (Verified 08/28/24 13:00) HPI Comments Details: 64 y.o M with PMH of who is here to establish care for ? cirrhosis. Pt reports having an ultrasound done last year through PCP office that showed possible cirrhosis. Pt himself does not have any abd pain, N,V, D, abd distention, pruritus. Multiple fam members with etOH use disorder but pt without any hx of significant etOH use. Only used to drink over the weekends and quit altogether in . No fam hx of auto immune diseases, iron overload, liver cancer. No OTC/CAM use. No exogenous steroids use. [place] 2016 - Dill. Was told some polyps but never returned in 5 years. Labs and US reviewed. Enlarged liver and spleen on elastography but stiffness normal. LFTs normal. 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 [employer] Cognitive needs: No Hearing needs: No Vision needs: No Review of Systems Const All systems reviewed & are unremarkable except as noted in HPI and below Physical Exam Vital Signs: phone visit Telehealth Telehealth Telehealth Platform: Telephone Location of provider rendering services: practice address Location of patient: address on file Patient Identification confirmed using: Name, : Yes Telehealth method: voice only Patient verbally consented to treatment: Yes Patient verbally consented to billing insurance company: Yes Patient informed of any privacy concerns related to visit: Yes Minutes spent on Phone/Video with Pt.: 17 Assessment & Plan Assessment & Plan (1) Hepatosplenomegaly: Code(s): R16.2 - Hepatomegaly with splenomegaly, not elsewhere classified Category: Medical (2) Personal history of colonic polyps: Code(s): Z86.0100 - Personal history of colon polyps, unspecified Category: Medical Plan 1.Discussed with the patient that first order of the business will be to establish whether he has cirrhosis or not. Plan: -labs and ultrasound ordered -if has evidence of cirrhosis, next step will be to try to delineate etiology of underlying cirrhosis 2. Patient also overdue for colorectal cancer screening, but wishes to defer this to next visit. Follow-up in 3 months Orders: Orders Complete Blood Count no Diff Today K74.60 - Unspecified cirrhosis of liver Comprehensive Met. Panel Today K74.60 - Unspecified cirrhosis of liver Prothrombin Time INR Today K74.60 - Unspecified cirrhosis of liver US abdomen complete Today K74.60 - Unspecified cirrhosis of liver Coding Level of Care Code Tele New Pt Level 4 (48355) Diagnoses Hepatosplenomegaly R16.2 Personal history of colonic polyps Z86.0100
== END ==
LOC: HO.HGI 13:25
PROVIDERS: PCP Surgery; Visit Provider Internal Medicine
DX: R16.2 Hepatomegaly with splenomegaly, not elsewhere classified (principal); Z86.0100 Personal history of colon polyps, unspecified
CPT/HCPCS: 98008

== ENCOUNTER 2024-09-11 14:51 | Outpatient (REF) | payer OTHER, SELFPAY ==
[2024-09-11 17:58] LABS: INTERNATIONAL NORM RATIO 0.9 (0.9-1.1); Prothrombin Time 10.6 SEC (10.9-12.4)
[2024-09-11 18:03] LABS: Alanine Aminotransferase 17 U/L (0-40); Alkaline Phosphatase 74 U/L (39-117); Anion Gap 13 (12-20); Aspartate Amino Transferase 29 U/L (5-37); Bilirubin Total 1.2 mg/dL (0.0-1.0); Blood Urea Nitrogen 16 mg/dL (9-16); Calcium 9.4 mg/dL (8.4-10.2); Carbon Dioxide 23 mmol/L (22-29); Chloride 106 mmol/L (96-108); Estimated Glomerular Filt Rate > 60; Glucose Random 126 mg/dL (60-115); Potassium 4.4 mmol/L (3.3-5.1); Sodium 138 mmol/L (135-145); Total Protein 7.4 g/dL (6.5-8.0)
[2024-09-11 18:14] LABS: Hematocrit 40.6 % (42.0-52.0); Hemoglobin 13.4 g/dl (14.0-18.0); Mean Corpuscular Hemoglobin 28.3 pg (27.0-33.0); Mean Corpuscular Volume 85.7 fL (80.0-98.0); Mean Platelet Volume 11.7 fL (9.4-12.4); Platelet Count 229 X10*3/uL (160-400); Red Blood Count 4.74 X10*6/uL (4.60-5.80); Red Cell Distribution Width 13.5 % (11.0-16.0)
== END 2024-09-11 14:52 | disposition home or self-care (01) ==
LOC: HO.WFDLDS 14:51
PROVIDERS: Visit Provider Internal Medicine
DX: K74.60 Unspecified cirrhosis of liver (principal)
CPT/HCPCS: 36415; 80053; 85027; 85610

== ENCOUNTER 2024-11-06 09:46 | Outpatient (REF) | payer OTHER, SELFPAY ==
--- NOTE | ~2024-11-06 | US_ITS ---
CLINICAL HISTORY: K74.60 - Unspecified cirrhosis of liver US abdomen complete with duplex and color Doppler Comparison: US/SR - US ABDOMEN COMP W ELASTOGRAPHY - 11/01/23 10:04 EDT Findings: The visualized pancreas, aorta, and inferior vena cava are unremarkable. Mild hepatomegaly which is diffusely echogenic with nodular contour. Right lobe 18.7 cm length. No focal hepatic masses. Common duct 4.0 mm diameter. Physiologic distention of the gallbladder. Layering 1.3 cm gallstone. No gallbladder wall thickening. No pericholecystic fluid. No sonographic Anaya sign. Main portal vein antegrade. Right kidney normal size, 13.1 cm in length. Normal cortical width and echotexture. No solid or cystic renal masses. Probable benign renal cortical cyst midpole measuring 1.9 x 1.8 x 1.6 cm previously measuring 1.6 cm Left kidney normal, 12.0 cm in length. Normal cortical width and echotexture. No solid or cystic renal masses. Probable benign cortical cyst upper pole measuring 2.3 x 2.1 x 2.2 cm previously measuring 1.5 cm Spleen measures 11.5 cm. No splenic masses. No ascites. No lymphadenopathy. Impression: 1. Mild hepatomegaly with nodular contour with increased echotexture consistent with cirrhosis/fatty infiltration 2. Probable incidental renal cortical cysts. 3. Cholelithiasis without evidence of cholecystitis This document has been electronically signed by: Emanuel Wright MD on 11/07/2024 13:17:10
== END 2024-11-06 09:47 | disposition home or self-care (01) ==
LOC: HO.US 09:46
PROVIDERS: PCP Nurse Practitioner Family; Visit Provider Internal Medicine
DX: K74.60 Unspecified cirrhosis of liver (principal)
CPT/HCPCS: 76700

== ENCOUNTER → 2024-11-06 09:47 | Outpatient (BNV) | payer OTHER, SELFPAY | PROVIDERS: PCP Nurse Practitioner Family; Visit Provider Radiology Diagnostic Radiology | DX: R16.0 Hepatomegaly, not elsewhere classified (principal) | CPT/HCPCS: 76700 ==

== ENCOUNTER 2024-12-14 09:40 | Outpatient (REF) | payer OTHER, SELFPAY ==
[2024-12-14 18:24] LABS: INTERNATIONAL NORM RATIO 0.9 (0.9-1.1); Prothrombin Time 10.6 SEC (10.9-12.4)
[2024-12-14 18:33] LABS: Hemoglobin A1C 134.2797 umol/L; Total Hemoglobin (HGBA1C) 3327.3349 umol/L
[2024-12-14 18:36] LABS: Cholesterol 134 mg/dL (<200); HDL Cholesterol 40 mg/dL (>40); Iron 74 mcg/dL (45-160); Percent Iron Saturation 24 % (15-50); Total Iron Binding Capacity 314 mcg/dL (228-428); Triglycerides 371 mg/dL (<150); Unsaturated Iron Binding 240 ug/dL
[2024-12-14 18:54] LABS: Ferritin 37 ng/mL (20-250)
[2024-12-14 19:48] LABS: Free T4 (Free Thyroxine) 0.75 ng/dL (0.71-1.85)
[2024-12-15 14:57] LABS: Immunoglobulin A 216 mg/dL (70-320)
[2024-12-17 22:43] LABS: ANA Pattern 3 Nuclear, Speckled; ANA Titer 3 1:40 titer; Anti Nuclear Antibody Screen POSITIVE (NEGATIVE); Anti Nuclear Antibody Titer 1:40 titer
[2024-12-17 22:57] LABS: Liver Kidney Microsomal Ab <=20.0 U (<=20.0)
[2024-12-18 08:17] LABS: Phosphatidylethanol 16:0-18:1 NEGATIVE; Phosphatidylethanol 16:0-18:2 NEGATIVE
== END 2024-12-14 09:41 | disposition home or self-care (01) ==
LOC: HO.WFDLDS 09:40
PROVIDERS: Internal Medicine; Visit Provider Internal Medicine Hypertension Specialist
DX: N28.1 Cyst of kidney, acquired (principal); N18.1 Chronic kidney disease, stage 1; E11.59 Type 2 diabetes mellitus with other circulatory complications; I15.2 Hypertension secondary to endocrine disorders
CPT/HCPCS: 36415; 80061; 80321; 82103; 82105; 82728; 82784; 83036; 83540; 84439; 84443; 85610; 86015; 86038; 86039; 86364; 86376

== ENCOUNTER 2024-12-14 09:40 | Outpatient (AMB) | payer OTHER, SELFPAY ==
--- NOTE | 2024-12-14 09:43 | HO.NEPHOV_ITS ---
Vital Signs 12/14/24 09:45 Height 5 ft 11 in Weight 268 lb BMI 37.4 BP 114/58 L Blood Pressure Location Rt brachial Position Sitting Pulse 77 Pulse Source Pulse Oximeter Pulse Oximetry (%) 94 Oxygen Delivery Method Room Air Intake Visit Reasons: Cyst of kidney/ LVM Clinical Systems Educator Required: No Accompanied by: Self / Same As Patient Allergies No Known Allergies Allergy (Verified 12/14/24 09:45) Medication List - Last Reconciled 12/14/24 by Azael Shah MD carisoprodol (Soma) 350 mg PO BEDTIME PRN docusate sodium 100 mg PO BID PRN fluoxetine 40 mg PO QAM lamotrigine 200 mg PO DAILY lamotrigine 50 mg PO QAM lisinopril 40 mg PO DAILY lorazepam 1 mg PO DAILY PRN mecobalamin (vitamin B12) (B12 Active) 1,000 mcg PO DAILY metformin ER 1,500 mg (3 x 500 mg) PO DAILY 90 days simvastatin 40 mg PO BEDTIME HPI Comments Details: . 63-year-old man with a history of diabetes mellitus for more than 15 years along with hypertension obesity was found to have simple renal cyst. He has been referred for evaluation of renal cyst. In 2021 he underwent repair of umbilical hernia which was incarcerated. During evaluation he was found to have bilateral simple cyst. He used to see Dr. Kenna Mcconnell send up until 2022. After his residential he has switched providers and currently being seen at by the [place] travel insurance agent. He also has microalbuminuria. Recent urine microalbumin creatinine ratio was 31. He is on lisinopril 40 mg. 12/14/24 The patient is a 64-year-old male presenting for follow-up on microalbuminuria and suspected liver cirrhosis. Microalbuminuria was identified previously with no significant symptom changes since the last visit. Suspected liver cirrhosis is being evaluated, related to nonalcoholic steatohepatitis, with no alcohol consumption history. An ultrasound in October suggested cirrhosis, and further evaluation is planned. Type 2 Diabetes Mellitus is managed with metformin, with HbA1c between 6.0 and 6.3. No urination issues or significant leg swelling, though mild edema is present. Blood work in August showed normal kidney function, bilirubin at 1.2, and normal liver enzymes. Simple renal cysts are present without current issues. MEDICAL HISTORY: - Type 2 Diabetes Mellitus - Nonalcoholic steatohepatitis - Microalbuminuria MEDICATIONS: - Metformin for Type 2 Diabetes Mellitus SOCIAL HISTORY: - Denies alcohol consumption FAMILY HISTORY: - Family history of alcohol-related cirrhosis DIAGNOSTIC RESULTS: - Labs: Bilirubin 1.2, normal liver enzymes (August) - Tests: Ultrasound in October indicated possible cirrhosis [facility] Medical History (Updated 09/11/24 @ 13:48 by Radha Denis MD) No pertinent past medical history Surgical History History of colonoscopy (~2020) No pertinent past surgical history Family History Mother Diabetes Leukemia Sister Diabetes Other Substance abuse Social History Housing: House Alcohol intake: never Patient Tobacco Use Status: Former Tobacco user e-Cigarette/Vaping Use: Never Used service: Yes Current occupational status: employed 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 Cognitive needs: No Hearing needs: No Vision needs: No Physical Exam Vital Signs: Last Vital Signs Pulse 77 12/14/24 09:45 BP 114/58 L 12/14/24 09:45 Pulse Ox 94 12/14/24 09:45 Oxygen Delivery Method Room Air 12/14/24 09:45 BMI result Body Mass Index 37.4 Const General: comfortable; No acute distress Orientation/consciousness: patient oriented x3 Eyes General: appearance normal, both eyes and all related structures Visual Jay: normal visual jay by confrontation Neck Neck: Yes supple and Yes no JVD Resp Effort & Inspection: normal respiratory effort and respiratory effort not decreased Auscultation: rhonchi Cardio Palpation: no palpable S3 and no palpable S4 Heart sounds: no rubs GI Inspection: Yes normal to inspection Palpation (GI): Soft to palpation Percussion: Yes normal to percussion Auscultation: normal bowel sounds General: Yes no CVA tenderness Back/Spine/Pelvis Back: no CVA tenderness Skin General skin exam: no petechiae and no purpura Neuro General: patient oriented x3 and no focal motor deficits Extrem General: No clubbing and No edema Results Reviewed Nephrology Results: Hgb, (14.0-18.0) 13.4 g/dl L 09/11/24 WBC, (4.8-10.8) 7.0 X10*3/uL 09/11/24 Plt Count, (160-400) 229 X10*3/uL 09/11/24 Sodium, (135-145) 138 mmol/L 09/11/24 Potassium, (3.3-5.1) 4.4 mmol/L 09/11/24 Chloride, (96-108) 106 mmol/L 09/11/24 Carbon Dioxide, (22-29) 23 mmol/L 09/11/24 BUN, (9-16) 16 mg/dL 09/11/24 Creatinine, (0.5-1.4) 0.80 mg/dL 09/11/24 Calcium, (8.4-10.2) 9.4 mg/dL 09/11/24 Urine Creatinine 113.37 mg/dL 08/28/24 Assessment & Plan Assessment & Plan (1) Renal cyst: Code(s): N28.1 - Cyst of kidney, acquired Category: Medical (2) CKD (chronic kidney disease) stage 1, GFR 90 ml/min or greater: Code(s): N18.1 - Chronic kidney disease, stage 1 Category: Medical (3) Hypertension complicating diabetes: Code(s): E11.59 - Type 2 diabetes mellitus with other circulatory complications; I15.2 - Hypertension secondary to endocrine disorders Category: Medical Plan ; 64-year-old man with hypertension diabetes medicine obesity with micro albuminuria and simple renal cyst. He has stage I CKD based on the renal cyst and microalbuminuria. Renal function is stable. Renal cyst. Based on the CT scan the appears a simple cyst. Follow-up ultrasonogram showed a simple cyst. No further workup was recommended. At present blood pressure is well controlled. Continue with ADILSON inhibitor for both control blood pressure and to control microalbuminuria. He should stay on low-sodium diet and he will benefit from weight loss. We will also benefit from SGLT2 inhibitors. No changes were made today. Orders: Orders Total Protein Urine Random 1 Year E11.59 - Type 2 diabetes mellitus with other circulatory complications, I15.2 - Hypertension secondary to endocrine disorders UA and rflx microscopic 1 Year E11.59 - Type 2 diabetes mellitus with other circulatory complications, I15.2 - Hypertension secondary to endocrine disorders Basic Metabolic Panel 1 Year E11.59 - Type 2 diabetes mellitus with other circulatory complications, I15.2 - Hypertension secondary to endocrine disorders Creatinine Urine 1 Year E11.59 - Type 2 diabetes mellitus with other circulatory complications, I15.2 - Hypertension secondary to endocrine disorders Coding Level of Care Code Est Pt Level 4 (54233) Diagnoses Renal cyst N28.1 CKD (chronic kidney disease) stage 1, GFR 90 ml/min or greater N18.1 Hypertension complicating diabetes E11.59; I15.2
[2024-12-14 09:45] VITALS: BP 114/58; PULSE 77; O2SAT 94; BMI 37.4
== END 2024-12-14 09:55 | disposition home or self-care (01) ==
LOC: HO.HKA 09:41
PROVIDERS: PCP Nurse Practitioner Family; Visit Provider Internal Medicine Hypertension Specialist
DX: N28.1 Cyst of kidney, acquired (principal); N18.1 Chronic kidney disease, stage 1; E11.59 Type 2 diabetes mellitus with other circulatory complications; I15.2 Hypertension secondary to endocrine disorders
CPT/HCPCS: 99214

== ENCOUNTER 2024-12-14 12:30 | Outpatient (AMB) | payer OTHER, SELFPAY ==
--- NOTE | 2024-12-14 12:32 | A.OFFVIS_ITS ---
Vital Signs 12/14/24 12:34 Height 5 ft 11 in Weight 264 lb 8.875 oz BMI 36.9 BP 128/59 L Blood Pressure Location Lt brachial Position Sitting Pulse 66 Intake Visit Reasons: 3 m f/u Hepatomegaly Intake Note: Guevara presents in the office as a 3 month follow up for Hepatomegaly. CC: States that he is feeling okay and denies GI concerns. Orthotist/Prosthetist Required: No Allergies No Known Allergies Allergy (Verified 12/14/24 09:45) HPI Comments Details: 64 y.o M with PMH of who is here to establish care for ? cirrhosis. Pt reports having an ultrasound done last year through PCP office that showed possible cirrhosis. Pt himself does not have any abd pain, N,V, D, abd distention, pruritus. Multiple fam members with etOH use disorder but pt without any hx of significant etOH use. Only used to drink over the weekends and quit altogether in . No fam hx of auto immune diseases, iron overload, liver cancer. No OTC/CAM use. No exogenous steroids use. [place] 2016 - Dill. Was told some polyps but never returned in 5 years. Labs and US reviewed. Enlarged liver and spleen on elastography but stiffness normal. LFTs normal. 12/14/24: Here for in person follow up. Reports no abd pain, N,V. Labs and US reviewed. Fib 4: 1.93 but US with possibly cirrhotic appearance of liver. Prev hx of etOH - rarely had more than 3 per session. No IVDU. Siblings with hx of etOH related disease. 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9, adult Category: Medical (2) DM type 2 causing complication: Comment: hld + htn Code(s): E11.8 - Type 2 diabetes mellitus with unspecified complications Category: Medical (3) Hyperlipidemia associated with type 2 diabetes mellitus: Code(s): E11.69 - Type 2 diabetes mellitus with other specified complication; E78.5 - Hyperlipidemia, unspecified Category: Medical (4) Hepatosplenomegaly: Code(s): R16.2 - Hepatomegaly with splenomegaly, not elsewhere classified Category: Medical (5) Personal history of colonic polyps: Code(s): Z86.0100 - Personal history of colon polyps, unspecified Category: Medical Plan 1. Discussed with the patient that based on the workup so far, liver disease is most likely secondary to MAFLD. Possibly has at least advanced fibrosis if not cirrhosis. Plan: -will get labs to rule out other etiology of chronic liver disease -ultrasound elastography 2. CRC screening Has history of colon polyps in 2016. Was given a recall for 5 years, patient is overdue. We will set him up for an elective colonoscopy. Plan: -PEG prep given -instructions reviewed with the patient and handout provided as well -follow-up after colo Orders: Orders Alpha 1 Anti-trypsin Today K74.60 - Unspecified cirrhosis of liver Alpha Fetoprotein Today K74.60 - Unspecified cirrhosis of liver Lipid Panel Today K74.60 - Unspecified cirrhosis of liver Transglutaminase IgA Today K74.60 - Unspecified cirrhosis of liver TSH reflex Free T4 Today K74.60 - Unspecified cirrhosis of liver US abdomen comp w elastography Today R16.2 - Hepatomegaly with splenomegaly, not elsewhere classified ARIANNA Reflex Titer and Pattern Today K74.60 - Unspecified cirrhosis of liver Ferritin Today K74.60 - Unspecified cirrhosis of liver Hemoglobin A1c Today K74.60 - Unspecified cirrhosis of liver IRON PROFILE Today K74.60 - Unspecified cirrhosis of liver Liver Kidney Microsomal Ab Today K74.60 - Unspecified cirrhosis of liver Phosphatidylethanol, Blood Today K74.60 - Unspecified cirrhosis of liver Prothrombin Time INR Today K74.60 - Unspecified cirrhosis of liver Smooth Muscle Antibody Today K74.60 - Unspecified cirrhosis of liver Immunoglobulin A Today K74.60 - Unspecified cirrhosis of liver Medications: New peg 3350-electrolytes 236-22.74-6.74 -5.86 gram (Golytely) as per split prep instructions, until fecal effluent is clear 240 mL PO Q10M 4,000 mL 0RF colonoscopy Coding Level of Care Code Est Pt Level 4 (01899) Diagnoses Severe obesity with body mass index (BMI) of 36.0 to 36.9 with serious comorbidity E66.01; Z68.36 DM type 2 causing complication E11.8 Hyperlipidemia associated with type 2 diabetes mellitus E11.69; E78.5 Hepatosplenomegaly R16.2 Personal history of colonic polyps Z86.0100
[2024-12-14 12:34] VITALS: BP 128/59; PULSE 66; BMI 36.9
== END 2024-12-14 13:07 | disposition home or self-care (01) ==
LOC: HO.HGI 12:31
PROVIDERS: PCP Surgery; Visit Provider Internal Medicine
DX: E66.01 Morbid (severe) obesity due to excess calories (principal); Z68.36 Body mass index [BMI] 36.0-36.9, adult; E11.8 Type 2 diabetes mellitus with unspecified complications; E11.69 Type 2 diabetes mellitus with other specified complication; E78.5 Hyperlipidemia, unspecified; R16.2 Hepatomegaly with splenomegaly, not elsewhere classified; Z86.0100 Personal history of colon polyps, unspecified
CPT/HCPCS: 99214

== ENCOUNTER 2025-04-07 09:38 | Outpatient (REF) | payer OTHER, SELFPAY ==
[2025-04-07 12:39] LABS: Alanine Aminotransferase 18 U/L (0-40); Albumin Level 4.1 g/dL (3.5-5.0); Alkaline Phosphatase 67 U/L (39-117); Anion Gap 11 (12-20); Aspartate Amino Transferase 31 U/L (5-37); Blood Urea Nitrogen 13 mg/dL (9-16); Calcium 9.0 mg/dL (8.4-10.2); Carbon Dioxide 27 mmol/L (22-29); Chloride 107 mmol/L (96-108); Cholesterol 109 mg/dL (<200); Estimated Glomerular Filt Rate > 60; HDL Cholesterol 42 mg/dL (>40); Potassium 4.6 mmol/L (3.3-5.1); Sodium 140 mmol/L (135-145); Total Protein 6.8 g/dL (6.5-8.0); Triglycerides 111 mg/dL (<150)
[2025-04-07 12:47] LABS: Folate 6.6 ng/mL (> or = 4.0); Vitamin B12 620 pg/mL (200-900)
== END 2025-04-07 09:39 | disposition home or self-care (01) ==
LOC: HO.WFDLDS 09:38
PROVIDERS: Visit Provider Nurse Practitioner Family
DX: E11.22 Type 2 diabetes mellitus with diabetic chronic kidney disease (principal); N18.1 Chronic kidney disease, stage 1; E11.69 Type 2 diabetes mellitus with other specified complication; E78.5 Hyperlipidemia, unspecified; Z12.5 Encounter for screening for malignant neoplasm of prostate
CPT/HCPCS: 36415; 80053; 80061; 82607; 82746; 83036; 84153

== ENCOUNTER 2025-04-16 09:59 | Outpatient (REF) | payer OTHER, SELFPAY ==
[2025-04-16 17:50] LABS: Microalbum/Creatinine Ratio Ur 60.8 ug/mg cr (<30)
== END 2025-04-16 10:00 | disposition home or self-care (01) ==
LOC: HO.WFDLDS 09:59
PROVIDERS: PCP Nurse Practitioner Family; Visit Provider Nurse Practitioner Family
DX: Z00.00 Encounter for general adult medical examination without abnormal findings (principal); I12.9 Hypertensive chronic kidney disease with stage 1 through stage 4 chronic kidney disease, or unspecified chronic kidney disease; E11.22 Type 2 diabetes mellitus with diabetic chronic kidney disease; E11.21 Type 2 diabetes mellitus with diabetic nephropathy; N18.1 Chronic kidney disease, stage 1; F41.9 Anxiety disorder, unspecified; E78.5 Hyperlipidemia, unspecified; M54.9 Dorsalgia, unspecified; G89.29 Other chronic pain; F41.1 Generalized anxiety disorder; K74.00 Hepatic fibrosis, unspecified; E66.3 Overweight; J31.0 Chronic rhinitis; E53.8 Deficiency of other specified B group vitamins; G47.33 Obstructive sleep apnea (adult) (pediatric); R60.0 Localized edema; Z86.0100 Personal history of colon polyps, unspecified; Z79.899 Other long term (current) drug therapy
CPT/HCPCS: 82043; 82570; 96127

== ENCOUNTER 2025-04-16 09:59 | Outpatient (AMB) | payer OTHER, SELFPAY ==
--- NOTE | 2025-04-16 10:03 | MHC.PC.OV ---
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 frequent eye exams if you have vision problems or glaucoma risk. Have an eye exam that includes an examination of your retina (back of your eye) at least every year if you have diabetes. IMMUNIZATIONS Commonly needed vaccines include: Flu shot: get one every year COVID-19 vaccine: ask your provider what is best for you Tetanus-diphtheria and acellular pertussis (Tdap) vaccine: have as one of your tetanus-diphtheria vaccines if you did not receive it as an adolescent Tetanus-diphtheria: have a booster (or Tdap) every 10 years Varicella vaccine: receive 2 doses if you never had chickenpox or the varicella vaccine and were born in 1980 or after Hepatitis B vaccine: receive 2, 3, or 4 doses, depending on your exact circumstances, if you did not receive these as a child or adolescent, until age 59 Shingles (herpes zoster) vaccine: at or after age 50 Ask your provider if you should receive other immunizations, especially if you have certain medical conditions, such as diabetes or are at increased risk for some diseases such as pneumonia. INFECTIOUS DISEASE SCREENING Screening for hepatitis C: all adults ages 18 to 79 should get a one-time test for hepatitis C. Screening for human immunodeficiency virus (HIV): all people ages 15 to 65 should get a one-time test for HIV. Depending on your lifestyle and medical history, you may need to be screened for infections such as syphilis, chlamydia, and other infections. LUNG CANCER SCREENING You should have an annual screening for lung cancer with low-dose computed tomography (LDCT) if: You are age 50 to 80 years AND You have a 20 pack-year smoking history AND You currently smoke or have quit within the past 15 years OSTEOPOROSIS SCREENING If you are age 50 to 64 and have risk factors for osteoporosis, you should discuss screening with your provider. Risk factors can include long-term steroid use, low body weight, smoking, heavy alcohol use, having a fracture after age 50, or a family history of hip fracture or osteoporosis. Osteoporosis PHYSICAL EXAM All adults should visit their provider from time to time, even if they are healthy. The purpose of these visits is to: Screen for diseases Assess risk of future medical problems Encourage a healthy lifestyle Update vaccinations and other preventive care services Maintain a relationship with a provider in case of an illness Your height, weight, and body mass index (BMI) should be checked at every exam. During your exam, your provider may ask you about: Depression and anxiety Diet and exercise Alcohol and tobacco use Safety, such as use of seat belts and smoke detectors Your medicines and risk for interactions PROSTATE CANCER SCREENING If you're 55 through 69 years old, before having the test, talk to your provider about the pros and cons of having a PSA test. Ask about: Whether screening decreases your chance of dying from prostate cancer. Whether there is any harm from prostate cancer screening, such as side effects from testing or overtreatment of cancer when discovered. Whether you have a higher risk of prostate cancer than others. If you are age 55 or younger, screening is not generally recommended. You should talk with your provider about if you have a higher risk for prostate cancer. Risk factors include: Having a family history of prostate cancer (especially a brother or father) Being If you choose to be tested, the PSA blood test is repeated over time (yearly or less often), though the best frequency is not known. Prostate examinations are no longer routinely done on men with no symptoms. Prostate cancer SKIN EXAM Your provider may check your skin for signs of skin cancer, especially if you're at high risk. People at high risk include those who have had skin cancer before, have close relatives with skin cancer, or have a weakened immune system. TESTICULAR EXAM The [place] Preventive Services Task Force (USPSTF) now recommends against performing testicular self-exams. Doing testicular self-exams has been shown to have little to no benefit.
[2025-04-16 10:07] VITALS: BP 122/66; PULSE 75; RESP 13; TEMP 36.4; O2SAT 96; BMI 38.8
== END 2025-04-16 10:43 | disposition home or self-care (01) ==
LOC: HO.HMCFM 10:00
PROVIDERS: PCP Nurse Practitioner Family; Visit Provider Nurse Practitioner Family
DX: Z00.00 Encounter for general adult medical examination without abnormal findings (principal); E11.9 Type 2 diabetes mellitus without complications; F41.1 Generalized anxiety disorder; J31.0 Chronic rhinitis; E53.8 Deficiency of other specified B group vitamins; Z01.00 Encounter for examination of eyes and vision without abnormal findings; Z86.0100 Personal history of colon polyps, unspecified; N18.1 Chronic kidney disease, stage 1; G47.33 Obstructive sleep apnea (adult) (pediatric); R60.0 Localized edema

== ENCOUNTER 2025-04-19 09:56 | Outpatient (REF) | payer OTHER, SELFPAY ==
--- NOTE | ~2025-04-19 | US_ITS ---
EXAMINATION: US ABDOMEN COMPLETE WITH LIVER ELASTOGRAPHY HISTORY: R16.2 - Hepatomegaly with splenomegaly, not elsewhere classified TECHNIQUE: Real-time grayscale ultrasound imaging of the abdomen was performed and images were reviewed. COMPARISON: Comparison is made with the prior examinations dated 11/06/2024 and 11/01/2023. FINDINGS: Liver: The right lobe of the liver measures 18.3 cm in size. The left lobe of the liver measures 11.4 cm in size. The liver demonstrates normal homogeneous echotexture. No focal mass or intrahepatic biliary ductal dilatation is identified. There is normal hepatopedal flow in the portal vein. Ultrasound elastography of the liver was performed with 10 separate measurements of the liver parenchyma with the patient in the supine position. Measurements were obtained approximately 2 cm below Jose J's capsule and perpendicular to the capsule. The median shear wave velocity is 1.41 m/s (previously 1.29 m/s). The interquartile range/median (IQR/median) is 0.18. Gallbladder and biliary tree: The gallbladder is unremarkable, without evidence of calculi, wall thickening, or pericholecystic fluid. There is no sonographic Anaya sign. The common bile duct is normal in caliber measuring 4 mm in diameter. Kidneys: The right kidney measures 12.1 cm in length and demonstrates a 1. 6 x 1.8 x 1.9 cm interpolar cyst. The left kidney measures 11.8 cm in length and demonstrates a 2.5 x 2.4 x 2.9 cm interpolar cyst. The kidneys are otherwise unremarkable, without evidence of solid masses, hydronephrosis, or calculi. Pancreas: The pancreatic head, neck, and body are unremarkable. The pancreatic tail is obscured by bowel gas. Spleen: The spleen is normal in size and contour, measuring 14.2 cm in length. Abdominal aorta and inferior vena cava: The visualized portions of the abdominal aorta and inferior vena cava are normal in caliber. There is no free fluid in the abdomen. US/US abdomen comp w elastography IMPRESSION: 1. Hepatosplenomegaly. 2. Bilateral renal cysts as described. The median shear wave velocity in the liver is 1.41 m/s, corresponding to a median liver stiffness of 5.9 kPa. The IQR/median value is 0.18. This is indicative of a quality data set. Findings are indicative of a low elastography value which rules out advanced chronic liver disease in asymptomatic patients. REFERENCE: Society of [employer]iologists in Ultrasound Liver Stiffness Thresholds (2020): LIVER STIFFNESS THRESHOLDS: *Shear wave velocity less than 1.3 m/s (Liver Stiffness equal or less than 5 kPa): High probability of being normal. *Shear wave velocity less than 1.7 m/s (Liver Stiffness less than 9 kPa): In the absence of other known clinical signs, rules out compensated advanced chronic liver disease. *Shear wave velocity between 1.7-2.1 m/s (Liver Stiffness 9-13 kPa): Suggestive of compensated advanced chronic liver disease but need further test for confirmation. *Shear wave velocity between 2.1-2.4 m/s (Liver Stiffness 13-17 kPa): Rules in compensated advanced chronic liver disease. *Shear wave velocity greater than 2.4 m/s (Liver Stiffness over 17 kPa): Suggestive of clinically significant portal hypertension. QUALITY OF DATA SET: *IQR/Median value equal or less than 0.30 implies a quality data set. *IQR/Median value over 0.30 implies a poor quality data set. SIGNIFICANT CHANGE FROM PRIOR EXAM: Significant change if liver stiffness measurement is 10% or greater from prior exam. OTHER CONSIDERATIONS: The stage of liver fibrosis may be overestimated in the setting of acute hepatitis, liver inflammation, elevated liver function tests, hepatic vascular congestion, obstructive cholestasis, non-fasting state, and infiltrative diseases such as amyloidosis and lymphoma. In some patients with NAFLD, the liver stiffness thresholds for compensated advanced chronic liver disease may be lower. In causes other than viral hepatitis and NAFLD, liver stiffness thresholds are not well established. Electronically signed by: Andre Weiss MD 04/19/2025 10:52 AM EST
== END 2025-04-19 09:57 | disposition home or self-care (01) ==
LOC: HO.US 09:56
PROVIDERS: PCP Nurse Practitioner Family; Visit Provider Internal Medicine
DX: R16.2 Hepatomegaly with splenomegaly, not elsewhere classified (principal)
CPT/HCPCS: 76700; 76981

== ENCOUNTER → 2025-04-19 09:58 | Outpatient (BNV) | payer OTHER, SELFPAY | PROVIDERS: PCP Nurse Practitioner Family; Visit Provider Radiology Diagnostic Radiology | DX: R16.2 Hepatomegaly with splenomegaly, not elsewhere classified (principal); N28.1 Cyst of kidney, acquired | CPT/HCPCS: 76700 ==